=== PATIENT | female | born 1945 | race Caucasian/White ===

== ENCOUNTER → 2020-06-10 | Outpatient (CLI) | payer MEDICARE, OTHER ==
[~2020-06-10] MED LIST: ASPI325T6 PO; COLACE 100100 MG/CAP PO; FOLIC ACID0.4 MG PO; IRON TABLETS325 MG PO; LOVENOX 4040 MG/0.4 SQ; NORCO 325 MG-7.1 TAB PO; SENOKOT S 50 MG1 TAB PO; SINEQUAN 1010 MG/CAP PO; SINEQUAN 5050 MG/CAP PO; VITAMIN C500 MG PO; ZESTRIL 10MG10 MG PO
== END ==
LOC: MC.RAD 09:38
DX: R92.2 Inconclusive mammogram (principal)
CPT/HCPCS: 30634

== ENCOUNTER 2020-07-02 06:46 | Day surgery (SDC) | payer MEDICARE, OTHER ==
[2020-07-02] VITALS (8 sets, daily range): BP systolic 121–187; BP diastolic 51–98; PULSE 78–91; TEMP 98–98.2
[~2020-07-02] VITALS: Ht 172.7 cm; Wt 115.5 kg
--- NOTE | 2020-07-02 09:46 | NUR ---
IV converted to INT and patient taken per wheelchair back to radiology.
--- NOTE | 2020-07-02 11:00 | NUR ---
Patient returns to room 8 per cart from radiology and IV fluids reconnected. Po pre-op meds given as ordered.
[2020-07-02] MEDS ORDERED: NORCO 325 MG-51 TAB PO (14:39)
[2020-07-02] MEDS ORDERED: MOTRIN 600600 MG/TAB PO (14:39)
--- NOTE | 2020-07-02 14:55 | NUR ---
Patient returns to room 8 per cart from PACU accompanied by Cecile BARRON and is awake and alert. Temp 97.6 and sats 95% on 2L. Incisions x2 on the left breast and axilla covered with gleason set dry. No bleeding or swelling noted at the site. States that she wants to rest. IV fluids infusing and spouse in the room. Siderails up x2 and call light in reach.
--- NOTE | 2020-07-02 15:10 | NUR ---
Resting with eyes closed when not disturbed.
--- NOTE | 2020-07-02 15:25 | NUR ---
Continues to rest and states that she is having minimal soreness.
--- NOTE | 2020-07-02 15:40 | NUR ---
Has been resting without complaints of pain or nausea.
--- NOTE | 2020-07-02 15:55 | NUR ---
Eating crackers and resting.
--- NOTE | 2020-07-02 16:25 | NUR ---
Oxygen removed and patient tolerates crackers and ice chips. Denies need for pain medication.
--- NOTE | 2020-07-02 16:40 | NUR ---
Patient dresses self and tolerates activity well. Denies pain or nausea. Given dismissal instructions and voices understanding of these. Provided script for [place] and informed that Motrin script was sent to the pharmacy.
--- NOTE | 2020-07-02 17:04 | NUR ---
Patient dismissal instructions signed. Assisted into wheelchair and taken to the front door and assisted into vehicle driven by spouse and dismissed to home. Instructions with patient.
== END 2020-07-02 17:04 | disposition home or self-care (01) ==
LOC: SDCO 06:46
DX: C50.912 Malignant neoplasm of unspecified site of left female breast (principal); I10 Essential (primary) hypertension; G47.33 Obstructive sleep apnea (adult) (pediatric); M19.90 Unspecified osteoarthritis, unspecified site; Z79.899 Other long term (current) drug therapy; Z96.653 Presence of artificial knee joint, bilateral; Z90.710 Acquired absence of both cervix and uterus; Z88.5 Allergy status to narcotic agent; Z20.828 Contact with and (suspected) exposure to other viral communicable diseases; Z85.038 Personal history of other malignant neoplasm of large intestine; Z93.2 Ileostomy status; Z98.51 Tubal ligation status; M17.0 Bilateral primary osteoarthritis of knee; Z85.828 Personal history of other malignant neoplasm of skin
CPT/HCPCS: A9541; J0690; J1100; J2250; J2370; J2405; J2704; J3010; J7120

== ENCOUNTER 2020-07-24 10:26 | Day surgery (SDC) | payer MEDICARE, OTHER ==
[~2020-07-24] VITALS: Ht 167.6 cm; Wt 114.9 kg
[~2020-07-24 10:26] MED LIST changes: +MOTRIN 600600 MG/TAB PO; +NORCO 325 MG-51 TAB PO
[2020-07-24 11:42] VITALS: BP 126/78; PULSE 81; TEMP 98.4
[2020-07-24 13:35] VITALS: BP 170/84; PULSE 89; TEMP 97.5
--- NOTE | 2020-07-24 13:35 | NUR ---
Pt to [facility] via cart from OR. Pt drowsy, but awake. Denies pain or nausea. [place]en set dressing to right chest and neck is clean, dry, and intact. Pt wanting to rest. Will continue to monitor. in room. Call light within reach.
[2020-07-24 13:50] VITALS: BP 152/73; PULSE 82
--- NOTE | 2020-07-24 13:50 | NUR ---
Pt continues to rest. Denies pain or nausea. Will continue to monitor. Call light within reach.
[2020-07-24 14:05] VITALS: BP 143/75; PULSE 77
--- NOTE | 2020-07-24 14:05 | NUR ---
Pt continues to rest. Awake visiting with with . Denies needs. Call light within reach.
[2020-07-24 14:20] VITALS: BP 133/65; PULSE 85
--- NOTE | 2020-07-24 14:20 | NUR ---
Pt continues to rest. Muffin and water given per pt request. Will continue to monitor. Call light within reach.
[2020-07-24 14:50] VITALS: BP 143/74; PULSE 84
--- NOTE | 2020-07-24 14:50 | NUR ---
Pt tolerated po food and fluids without diffiuclties. Pt denies pain or nausea. Call light within reach.
--- NOTE | 2020-07-24 15:15 | NUR ---
Discharge instructions reviewed. Pt voices understanding. IV site discontinued with all parts intact. Pt up to dress. Call light within reach.
--- NOTE | 2020-07-24 15:30 | NUR ---
Pt escorted to private car via wheel chair. Pt accompanied home by her .
== END 2020-07-24 15:30 | disposition home or self-care (01) ==
LOC: SDCO 10:26
DX: C50.912 Malignant neoplasm of unspecified site of left female breast (principal); Z85.038 Personal history of other malignant neoplasm of large intestine; G47.33 Obstructive sleep apnea (adult) (pediatric); M19.90 Unspecified osteoarthritis, unspecified site; Z85.828 Personal history of other malignant neoplasm of skin; I10 Essential (primary) hypertension; Z90.710 Acquired absence of both cervix and uterus; Z88.5 Allergy status to narcotic agent; Z96.653 Presence of artificial knee joint, bilateral; Z90.49 Acquired absence of other specified parts of digestive tract; F32.9 Major depressive disorder, single episode, unspecified
CPT/HCPCS: C1788; J0690; J2405; J2704; J3010; J7120